=== PATIENT | female | born 1985 | race Caucasian/White ===

== ENCOUNTER 2024-09-30 07:27 | Outpatient (OUT) | payer MEDICAID, SELFPAY ==
[2024-09-30 09:01] LABS: Free T3 2.41 pg/mL (2.18-3.98); Glucose 174 mg/dL (74-106)
[2024-10-01 04:07] LABS: C-Peptide, Serum 3.1 ng/mL (1.1-4.4); DHEA-Sulfate 41.2 ug/dL (57.3-279.2); Estradiol 17.2 pg/mL (.); Insulin 10.6 uIU/mL (2.6-24.9); Progesterone 0.4 ng/mL (.); Sex Horm Binding Glob, Serum 26.6 nmol/L (24.6-122.0)
[2024-10-01 15:08] LABS: Thyroglobulin Antibody <1.0 IU/mL (0.0-0.9); Thyroid Peroxidase (TPO) Ab 11 IU/mL (0-34)
[2024-10-04 11:08] LABS: Free Testosterone(Direct) 1.2 pg/mL (0.0-4.2); Testosterone <3 ng/dL (8-60)
[2024-10-04 19:12] LABS: Estrone, Serum 104 pg/mL (27-231)
[2024-10-05 09:08] LABS: Serotonin, Serum 35 ng/mL (31-207)
== END 2024-09-30 07:28 | disposition home or self-care (01) ==
LOC: LAB 07:31
PROVIDERS: PCP Family Medicine; Visit Provider Obstetrics & Gynecology
DX: E34.9 Endocrine disorder, unspecified (principal)
CPT/HCPCS: 36415; 82306; 82530; 82627; 82670; 82679; 82728; 82947; 83525; 84144; 84260; 84270; 84402; 84403; 84432; 84436; 84481; 84482; 84681; 86376; 86800